=== PATIENT | female | born 1975 | race Caucasian/White ===

== ENCOUNTER 2020-05-19 10:00 | Outpatient (NON) | payer OTHER, SELFPAY ==
[2020-05-19 22:40] LABS: SARS-CoV-2 RNA PCR Negative
== END 2020-05-19 10:01 ==
PROVIDERS: PCP Internal Medicine; Visit Provider Internal Medicine
DX: Z20.828 Contact with and (suspected) exposure to other viral communicable diseases (principal)
CPT/HCPCS: 87635; C9803; U0003

== ENCOUNTER 2020-07-26 09:57 | Outpatient (NON) | payer OTHER, SELFPAY ==
[2020-07-26 22:17] LABS: SARS-CoV-2 RNA PCR Negative
== END 2020-07-26 09:58 ==
PROVIDERS: PCP Internal Medicine; Visit Provider Internal Medicine
DX: R68.89 Other general symptoms and signs (principal); Z20.822 Contact with and (suspected) exposure to COVID-19
CPT/HCPCS: C9803; U0003